=== PATIENT | male | born 1970 | race Hispanic/Latino ===

== ENCOUNTER 2017-04-12 16:56 | Outpatient (CLI) | payer BC ==
--- NOTE | 2017-04-13 13:50 | Magnetic Resonance Report ---
MRI LUMBAR SPINE WITHOUT CONTRAST INDICATION: Low back pain. COMPARISON: None similar at this institution. FINDINGS: Noncontrast multiplanar and multisequence MRI of the lumbar spine demonstrates approximately 4 mm anterolisthesis of L4 over L5 with disc uncovering posteriorly as also adjacent vertebral body edema on the right. Slight L4 inferior endplate irregularity, loss of disc signal and mild to moderate disc narrowing at this level as well. Normal remainder vertebral body stature, alignment and disc heights. Small Schmorl's node along L2 superior endplate incidentally seen. Normal conus medullaris terminating behind L1. On the obtained axial images: T12-L1 demonstrates slight disc desiccation. L1-L2, L2-L3 and L3-L4 are unremarkable. AP thecal sac caliber approximately 1.3 cm, axial series 6, image 23. L4-L5, in addition to above findings, demonstrates postlaminectomy changes with small amount of fluid and edema along the posterior surgical tract. Moderate left and mild right facet effusions noted as also approximately 1.5 x 0.9 cm complex postsurgical signal in the region of the ligamentum flavum as on axial series 6, image 16, amongst others with right posterolateral thecal sac effacement, that in conjunction with spondylolisthesis/diffuse disc bulge results in moderate to severe spinal stenosis with AP sac caliber of 0.7 cm on axial image 17. Bilateral neural foraminal narrowing, right more than left. L5-S1 demonstrates loss of disc signal with possible slight narrowing. Small, approximately 2 mm midline annular fissures may also be present. Slight central disc bulge appears predominantly ventral epidural without significant spinal stenosis. Slight bilateral facet arthropathy. CONCLUSION: 1. L4-L5 postsurgical and degenerative changes on this unenhanced exam with spinal stenosis/thecal sac effacement, as detailed above. Please also correlate with duration of surgery. 2. Few other incidental findings, as above. I phoned the above results to Dr. Mast, 1:15 PM, 04/13/2017. Thank you for the opportunity to participate in this patient's care.
== END 2017-04-12 16:57 | disposition home or self-care (01) ==
LOC: MRI 16:56
DX: M48.06 Spinal stenosis, lumbar region (principal); M79.661 Pain in right lower leg; G60.9 Hereditary and idiopathic neuropathy, unspecified; M12.88 Other specific arthropathies, not elsewhere classified, other specified site; M25.48 Effusion, other site; Z98.890 Other specified postprocedural states
CPT/HCPCS: 72148